=== PATIENT | male | born 1970 | race Caucasian/White ===

== ENCOUNTER 2019-01-16 07:30 | Inpatient (IN) ==
[2019-01-10 18:02] LABS: Appearance,Urine CLEAR; Bilirubin,Urine NEG (NEG); Color,Urine STRAW; Glucose,Urine (UA) NEGATIVE (NEG); Ketones,Urine NEG (NEG); Leukocyte Esterase,Urine NEG /uL (NEG); Nitrate,Urine NEG (NEG); Protein,Urine NEG (NEG); Specific Gravity,Urine 1.009 (1.000-1.035); Urine Blood NEG mg/dL (<0.03); Urobilinogen,Urine NEG (NEG)
[2019-01-10 20:48] LABS: Basophils # (Auto) 0 K/mcL (0.0-0.3); Basophils % (Auto) 0.5 % (0.0-2.0); Eosinophils # (Auto) 0.3 K/mcL (0.0-0.7); Eosinophils % (Auto) 3.4 % (0.0-7.0); Granulocytes % (Auto) 57.3 % (38.0-78.0); Hematocrit 39.5 % (41.0-55.0); Hemoglobin 12.8 g/dL (13.5-16.5); Lymphocytes # (Auto) 2.9 K/mcL (1.5-4.8); Lymphocytes % (Auto) 31.1 % (15.5-49.0); Mean Cell Volume 93.3 fL (80.0-100.0); Mean Corpuscular HGB Conc 32.4 g/dL (31.0-36.0); Monocytes # (Auto) 0.7 K/mcL (0.1-0.9); Monocytes % (Auto) 7.7 % (1.0-12.0); Platelet Count 243 K/mcL (140-440); RBC 4.23 M/mcL (4.50-5.90); Red Cell Distribution Width 14.8 % (11.5-14.5); WBC 9.4 K/mcL (4.5-11.0)
[2019-01-10 20:58] LABS: Estimated Average Glucose(eAG) 114 mg/dL; Hemoglobin A1C 5.6 % HGB (4.0-6.0)
[2019-01-10 21:21] LABS: Blood Urea Nitrogen 16 mg/dl (6-20); Calcium 9.1 mg/dl (8.6-10.4); Carbon Dioxide 28 mmol/L (22-30); Chloride 100 mmol/L (96-108); Glomerular Filtration Rate 88; Glucose 81 mg/dL (70-105)
[~2019-01-16 07:30] MED LIST: CELECOXIB 200 MG CAPSULE PO SCH; PREGABALIN 150 MG CAPSULE PO SCH; ceFAZolin 2 GM in DEXTROSE 5% IN WATER 50 ML IV SCH; oxyCODONE 10 MG TAB.ER.12H PO SCH
[2019-01-16] MEDS ORDERED: fentaNYL 25 MCG PATCH TD SCH (10:00)
[2019-01-16] MEDS ORDERED: SCOPOLAMINE 1 PATCH PATCH TOPICAL PRN (11:00)
[2019-01-16] MEDS ORDERED: IPRATROPIUM/ALBUTEROL 3 ML AMPUL.NEB NEB PRN ×2 (11:00→15:29)
[2019-01-16] MEDS ORDERED: LIDOCAINE HCL/PF 100 MG/5 ML SYRINGE IV ONE (14:05)
[2019-01-16] MEDS ORDERED: GLYCOPYRROLATE 0.2 MG/ML VIAL IV ONE (14:05)
[2019-01-16] MEDS ORDERED: TRANEXAMIC ACID 1,000 MG/10 ML VIAL IV ONE ×2 (14:05→15:37)
[2019-01-16] MEDS ORDERED: MIDAZOLAM 5 MG/5 ML VIAL IV ONE (14:05)
[2019-01-16] MEDS ORDERED: ONDANSETRON 4 MG/2 ML VIAL IV ONE (14:05)
[2019-01-16] MEDS ORDERED: ROPIVACAINE HCL/PF 30 ML VIAL IJ ONE (14:05)
[2019-01-16] MEDS ORDERED: KETAMINE 100 MG/ML ML IV ONE (14:05)
[2019-01-16] MEDS ORDERED: PROPOFOL 200 MG/20 ML VIAL IV ONE (14:05)
[2019-01-16] MEDS ORDERED: DEXAMETHASONE 10 MG/ML VIAL IV ONE (14:05)
[2019-01-16] MEDS: 0.9 % SODIUM CHLORIDE 9 ML, KETOROLAC 30 MG, ROPIVACAINE HCL/PF 49.5 ML, EPINEPHrine 0.... IJ SCH ×2 (14:41→15:13)
[2019-01-16] MEDS ORDERED: PROMETHAZINE 25 MG/ML VIAL IM PRN (15:29)
[2019-01-16] MEDS ORDERED: fentaNYL 100 MCG/2 ML VIAL IV PRN (15:29)
[2019-01-16] MEDS ORDERED: ACETAMINOPHEN 1,000 MG/100 ML BOTTLE IV ONE (15:29)
[2019-01-16] MEDS ORDERED: METHOCARBAMOL 1,000 MG/10 ML VIAL IV PRN (15:29)
[2019-01-16] MEDS ORDERED: ONDANSETRON 4 MG/2 ML VIAL IV PRN ×2 (15:29→15:37)
[2019-01-16] MEDS ORDERED: LACTATED RINGERS 1,000 ML IV SCH (15:30)
[2019-01-16] MEDS ORDERED: MAGNESIUM HYDROXIDE 30 ML ORAL.SUSP PO PRN (15:37)
[2019-01-16] MEDS ORDERED: BENZOCAINE/MENTHOL 1 LOZENGE PO PRN (15:37)
[2019-01-16] MEDS ORDERED: POLYETHYLENE GLYCOL 3350 17 GM PACKET PO PRN (15:37)
[2019-01-16] MEDS ORDERED: BISACODYL 10 MG SUPP.RECT PR PRN (15:37)
[2019-01-16] MEDS ORDERED: FLEETS ADULT ENEMA PR PRN (15:37)
--- NOTE | 2019-01-16 15:37 | Brief Operative Note ---
Date of procedure: 01/16/19 Pre-op diagnosis: Left knee severe OA Post-op diagnosis: same Procedure: Left total knee arthroplasty Grafts/Implants: Yes ([place] Triathlon CR 5 femur, 6 tiba, 11mm X3 CR insert, 36 patella) Anesthesia: spinal, GLMA Findings: bone on bone arthritis Complications: none Surgeon: Malik Padron Harmonica Maker: Tani Head Estimated blood loss (cc): 30 Specimens Removed/Pathology: none sent Condition: stable Disposition: PACU
[2019-01-16] MEDS: MEPERIDINE 25 MG/ML SYRINGE IV PRN ×2 (16:20→16:27)
--- NOTE | 2019-01-16 16:45 | XRay Report ---
HISTORY: Postop left knee arthroplasty FINDINGS: There is a well-positioned left total knee prosthesis. No fracture is present. There is a crescent-shaped dystrophic calcification adjacent to the medial femoral epicondyle, due to chronic inflammation. IMPRESSION: Normal left knee prosthesis Interpreted and Authenticated by: Rom Evans 01/16/19
[2019-01-16] MEDS: KETOROLAC 30 MG/ML VIAL IV SCH (17:59)
[2019-01-16] MEDS: PANTOPRAZOLE 40 MG TABLET PO SCH (17:59)
[2019-01-16] MEDS: 0.9 % SODIUM CHLORIDE 1,000 ML IV SCH (17:59)
[2019-01-16] MEDS: HYDROcodone/APAP 10/325MG TABLET PO PRN ×2 (19:33→21:38)
[2019-01-16] MEDS ORDERED: ESOMEPRAZOLE MAGNESIUM 40 MG PO SCH (21:00)
[2019-01-16] MEDS ORDERED: SENNOSIDES 1 TABLET PO SCH (21:00)
[2019-01-16] MEDS ORDERED: MONTELUKAST 10 MG TABLET PO SCH (21:00)
[2019-01-16] MEDS ORDERED: ASPIRIN 81 MG TAB.CHEW ONE (21:35)
[2019-01-16] MEDS: PREGABALIN 150 MG CAPSULE PO SCH (21:38)
[2019-01-16] MEDS: ASPIRIN 325 MG ENTERIC COATED TABLET PO SCH (21:38)
[2019-01-16] MEDS: DOCUSATE SODIUM 100 MG CAPSULE PO SCH (21:38)
[2019-01-16] MEDS: ceFAZolin 1 GM VIAL IV SCH (21:39)
[2019-01-16] MEDS: 0.9 % SODIUM CHLORIDE 10 ML SYRINGE IV SCH (21:40)
[2019-01-16] MEDS: HYDROmorphone 2 MG/ML VIAL IV PRN (23:23)
[2019-01-17] MEDS: HYDROcodone/APAP 10/325MG TABLET PO PRN ×3 (00:08→06:05)
[2019-01-17] MEDS: KETOROLAC 30 MG/ML VIAL IV SCH ×2 (00:09→06:03)
[2019-01-17] MEDS: 0.9 % SODIUM CHLORIDE 1,000 ML IV SCH ×3 (00:10→06:55)
[2019-01-17] MEDS: HYDROmorphone 2 MG/ML VIAL IV PRN (02:58)
[2019-01-17] MEDS: ceFAZolin 1 GM VIAL IV SCH (06:02)
[2019-01-17] MEDS: 0.9 % SODIUM CHLORIDE 10 ML SYRINGE IV SCH (06:03)
--- NOTE | 2019-01-17 07:33 | Discharge Summary ---
Providers - Providers Patient information: Note initiated : 01/17/19 at 7:27 am Service Date, if different from initiated Date: [] Patient: Narciso Story 48 y/o M admitted on 01/16/19 for Left Total Knee Arthroplasty. Chief Complaint: [] Discharge date: 01/17/19 Hospitalization Hospital Course: Pt was admitted for a L TKA. Pt underwent the procedure on the day of admission. Pt transferred to the floor for IV pain meds, and IV abx, and PT. Pt discharged on post-op day 1. Will take ASA for DVT prophylaxis. Will f/u in 2 weeks. Discharge diagnosis: L knee OA Exam - Exam Clean and dry: Yes Weight bearing status: as tolerated Ortho Discharge - TKA - Patient Instructions Diet: Regular Diet Activity: activity as tolerated Total Knee Protocol: For Total Knee: Start ROM ASHIA with stationary bike or rocking chair. Work on gaining full extension of knee. Posterior dislocation precautions provided. Hip abductor strengthening and gait training instructions provided. Apply Cryocuff as instructed. Dressing Care: May shower in 2 days - Follow Up Plan Follow Up Appointments: Tani Head PA-C [Physician Senior Office Support Assistant Sosa] - 01/29/19 8:50 am Disposition: Home, Self-Care Prognosis: Good Rehab Potential: Good Overall status at discharge: patient is progressing back to baseline - Orders For Discharge Prescriptions: Aspirin [Ecotrin] 81 mg PO BID #30 tab.ec Transmission Status: Pending to [facility] oxyCODONE HCL/ACETAMINOPHEN [Percocet 5-325 mg Tablet] 1 - 2 each PO Q4-6HP PRN #75 tab PRN Reason: Pain Prescription Printed Pending Studies Resuscitation Status Full Code Diet Regular Diet Start TueJan 17 1540 Hydrocodone Bitart/Acetaminophen ([place] 10/325mg) 0 tab PO Q4HP PRN PRN Reason: PAIN LEVEL 3-6 Last Admin: 01/17/19 06:05 Dose: 1 tab Documented by: Admin: 01/17/19 02:57 Dose: 1 tab Documented by: Admin: 01/17/19 00:08 Dose: 1 tab Documented by: Admin: 01/16/19 21:38 Dose: 1 tab Documented by: Admin: 01/16/19 19:33 Dose: 1 tab Documented by: YAQUELIN Aspirin (Ecotrin) 81 mg PO BID ON LICENSE OF [facility] Last Admin: 01/16/19 21:38 Dose: Not Given Documented by: YAQUELIN Docusate Sodium (Colace) 100 mg PO BID ON LICENSE OF [facility] Last Admin: 01/16/19 21:38 Dose: 100 mg Documented by: YAQUELIN Fentanyl (Duragesic) 25 mcg TD Q72H ON LICENSE OF [facility] Last Admin: 01/16/19 18:00 Dose: Not Given Documented by: MERVAT Hydromorphone HCl (Dilaudid) 0 mg IV Q2HP PRN PRN Reason: PAIN LEVEL > 6 Last Admin: 01/17/19 02:58 Dose: 1 mg Documented by: Admin: 01/16/19 23:23 Dose: 1 mg Documented by: YAQUELIN Sodium Chloride (Sodium Chloride 0.9%) 1,000 mls @ 125 mls/hr IV .Q8H ON LICENSE OF [facility] Last Admin: 01/17/19 06:55 Dose: Not Given Documented by: Infusion: 01/17/19 06:14 Dose: 0 mls/hr Documented by: Admin: 01/17/19 01:43 Dose: 125 mls/hr Documented by: Infusion: 01/17/19 01:43 Dose: 125 mls/hr Documented by: Admin: 01/17/19 00:10 Dose: Not Given Documented by: Admin: 01/16/19 17:59 Dose: 125 mls/hr Documented by: MERVAT Ketorolac Tromethamine (Toradol) 30 mg IV Q6 ON LICENSE OF [facility] Stop: 01/18/19 12:01 Last Admin: 01/17/19 06:03 Dose: 30 mg Documented by: Admin: 01/17/19 00:09 Dose: 30 mg Documented by: Admin: 01/16/19 17:59 Dose: 30 mg Documented by: MERVAT Montelukast Sodium (Singular) 10 mg PO QHS ON LICENSE OF [facility] Last Admin: 01/16/19 21:38 Dose: 10 mg Documented by: YAQUELIN Pantoprazole Sodium (Protonix) 40 mg PO BIDAC ON LICENSE OF [facility] Last Admin: 01/16/19 17:59 Dose: 40 mg Documented by: MERVAT Pregabalin (Lyrica) 150 mg PO BID ON LICENSE OF [facility] Last Admin: 01/16/19 21:38 Dose: 150 mg Documented by: YAQUELIN Senna (Senokot) 2 tab PO HS ON LICENSE OF [facility] Last Admin: 01/16/19 21:38 Dose: 2 tab Documented by: YAQUELIN Sodium Chloride (Saline Flush) 10 ml IV Q8 ON LICENSE OF [facility] Last Admin: 01/17/19 06:03 Dose: 10 ml Documented by: Admin: 01/16/19 21:40 Dose: Not Given Documented by: YAQUELIN Shift Summary 01/17/19 03:56 Shift Summary by Sarahi Contreras Patient alert and oriented x4. Medicated with Dilaudid 1mg x2 and Hydrocodone 1 tab every 2-3 hours. Patient states Hydrocodone does not help much with his pain. Also on scheduled Toradol. Patient advised to talk to MD in AM during rounds to ask for much stronger pain pill. Patient was straight cath at 2230H for 1000 mls. Voided at 0300H 500 mls, PVR 114 mls. Cryo-cuff applied. NINI pumps on bilateral feet. Dressing on left knee CDI. IV to saline lock at shift change. VSS. Initialized on 01/17/19 03:56 - END OF NOTE
[2019-01-17] MEDS ORDERED: oxyCODONE/APAP 5/325MG TABLET PO PRN (07:42)
--- NOTE | 2019-01-17 08:11 | Operative Note ---
DATE OF OPERATION: 01/16/2019 PREOPERATIVE DIAGNOSIS: Left knee severe osteoarthritis. POSTOPERATIVE DIAGNOSIS: Left knee severe osteoarthritis. PROCEDURE PERFORMED: Left total knee arthroplasty placing a [place] triathlon size 5 cruciate retaining femoral component, size 6 tibial baseplate, an 11 mm X3 tibial insert and a 36 mm patellar button. SURGEON: Malik Padron MD CREDIT RISK SPECIALIST: Philip Head PA-C. This provider's expertise and technical skill were required throughout the case. The PA assisted with preoperative coordination, intraoperative retraction, wound closure, dressing and splint application, as well as postoperative documentation and care coordination. ANESTHESIA: Spinal plus general. DRAINS: None. SPECIMENS: Bone cuts, which were discarded. BLOOD LOSS: 50 mL COMPLICATIONS: None. POSTOPERATIVE CONDITION: Stable. INDICATIONS FOR SURGERY: A 48-year-old male who has had longstanding left knee pain. He had a history of the knee arthroscopy done several years ago and has had gradually worsening pain. Radiographs showed qdpl-na-iixx osteoarthritis, which is no longer responding to conservative treatment. FINDINGS AT SURGERY: There was wtby-ud-ckub osteoarthritis. Post-implantation showed good limb alignment, stability, and patellar tracking. PROCEDURE IN DETAIL: The patient had been seen preoperatively and informed consent had been obtained after discussion of risks and benefits of surgery. Risks including, but not limited to, bleeding, possibly requiring transfusion; infection, possibly requiring implant removal and prolonged IV antibiotics; injury to nerves, blood vessels or other surrounding structures, anesthetic risks, DVT and pulmonary embolus risks; stiffness; swelling; pain; instability; clunking. He understood these risks and wished to proceed. Correct operative site was marked and patient received spinal anesthesia in preoperative holding. He was then taken to the operating room and LMA general given. He was carefully positioned on the OR table and the left lower extremity was carefully prepped and draped in normal sterile fashion and a timeout was performed verifying patient name, operative site, and plan. Esmarch was used to exsanguinate the extremity and tourniquet was inflated to 300 mmHg. Ioban was used to cover all skin surfaces. A midline incision was made with a scalpel through skin and subcutaneous tissue. IrriSept was irrigated and then a medial parapatellar arthrotomy made. Subperiosteal exposure was done of the anterior medial tibia with Bovie and then ACL was transected. Anterior horns of the meniscus were removed. The retropatellar fat pad was excised and then the patella was measured thickness of 25. I then did a freehand resection with a saw. Post-resection thickness was 13. We placed a cut protector. The knee was flexed up and then a drill hole was made in the notch of the femur. We then passed a flexible IM line it up and a 5 degree valgus cut angle with an 8 mm depth of resection was pinned into place holding the flexible keara with a mild posterior pressure. We then cut our distal femoral cut. Flat block was checked to verify a flush cut and then we placed the sizer. This was pinned into place and it appeared to size to a size 5. I went ahead and externally rotated 4 degrees to match [place] line and then holes were drilled. We then held up a size 5 femur. It looked small medial to lateral, so I went to a size 6. The size 6 looked better medial to lateral, so I went ahead and pinned a size 6, 4-in-[address]. We made our anterior cut and this appeared to have an adequate depth of resection, so I went ahead and removed this block and went to a size 5. We recut our anterior cut and this time it was flush with the anterior cortex. We went ahead and made our posterior and chamfer cuts. We then removed the 4-in-1 block and subluxed the tibia forward. The posterior horns of the menisci were removed. A drill hole was made in the ACL footprint and the IM keara was passed down the tibial canal. I stylused two off of the medial side and pinned this into place. My initial cut; however, was too shallow not getting through cartilage fully on the medial side, so we went ahead and moved this cutting block down 1 set of holes and recut. This time I did contact bone throughout the tibia. We then sized the tibia; a size 5 was undersized and a size 6 fit nicely, so we externally rotated as bone coverage would allow. This was pinned into place. We then used a boss reamer and keel punch to prepare the tibia and then a keeled tibial trial was placed. Femur was elevated and curved osteotome used to remove any posterior osteophyte and curet and rongeur was used to remove the bone fragments. We then impacted the size [address] I centered this over the notch. This was pinned into place and then the peg holes were drilled and a 9 insert trial was snapped into place. The knee was taken into extension and then we prepared the patella using a 36 and medialized maximally. Holes were drilled and then the patellar trial placed and then a lateral facetectomy performed. Post-reconstruction thickness measured 24 mm. We then checked our patellar tracking and it was good without tilt or subluxation, so we went ahead and removed trial implants. Definitive implants were opened. We irrigated the joint with IrriSept and after a minute we pulse lavaged copiously with saline. I made some drill holes in the sclerotic bone on the medial and lateral tibia. Antibiotic cement was mixed; CO2 gun was used to clean and dry the cancellous bone surface and then we cemented the tibia. Excess cement was removed. We then cemented the femur and excess cement removed. The 9 insert trial was placed and the knee was taken into full extension and placed on a bump. We then cemented the patellar button. We removed any excess cement that extruded out and then filled the joint with IrriSept. I injected pain cocktail in the subcutaneous and pericapsular tissues. Once cement had fully hardened, we flexed the knee up and removed any remaining cement visible. A 9 insert trial head snapped in easily, so I elected to tighten things up with an 11. We opened an 11 CR insert and injected pain cocktail in the posteromedial capsule. IrriSept was irrigated onto the tray and then the 11 insert was carefully impacted and verified to be fully seated. We checked our range of motion. We still got essentially full extension and excellent stability throughout range of motion and good patellar tracking. We then filled the joint of IrriSept again and after waiting a minute pulse lavaged with saline. The knee was then placed in about 45 degrees of flexion. Interrupted #2 FiberWire ylfier-sg-tdyrgh were used around the superior quadrant of the patella, #1 Vicryl keqjjo-op-zwexlt were used around the inferior quadrant, running #1 Vicryl was used for patellar tendon and quad tendon closure. IrriSept was irrigated a final time, lavage with saline and then 2-0 Monocryl was used for subcutaneous and carlita for skin. Xeroform sterile dressings were applied. Tourniquet was released. The patient was awakened, extubated, and transferred to recovery in stable condition. BJB:laurel Job ID: [id number] Doc ID: [id number] Malik Padron MD
[2019-01-17] MEDS ORDERED: HYDROCHLOROTHIAZIDE 12.5 MG CAPSULE PO SCH (09:00)
[2019-01-17] MEDS ORDERED: ASCORBIC ACID 500 MG TABLET PO SCH (09:00)
[2019-01-17] MEDS ORDERED: ASPIRIN 81 MG TAB.CHEW PO SCH (09:00)
[2019-01-17] MEDS: PANTOPRAZOLE 40 MG TABLET PO SCH (10:23)
[2019-01-17] MEDS: DOCUSATE SODIUM 100 MG CAPSULE PO SCH (10:23)
[2019-01-17] MEDS: PREGABALIN 150 MG CAPSULE PO SCH (10:23)
[2019-01-17] MEDS: ASPIRIN 325 MG ENTERIC COATED TABLET PO SCH (10:51)
== END 2019-01-17 11:35 | disposition home or self-care (01) | DRG 470 ==
LOC: MEDSUR 11:15
PROVIDERS: ADMIT Orthopaedic Surgery; ATTEND Orthopaedic Surgery

== ENCOUNTER 2019-04-13 06:49 | Inpatient (IN) ==
[2019-04-06 12:34] LABS: Appearance,Urine CLEAR; Bilirubin,Urine NEG (NEG); Color,Urine STRAW; Culture Indicated,Urine NO; Glucose,Urine (UA) NEGATIVE (NEG); Ketones,Urine NEG (NEG); Leukocyte Esterase,Urine NEG /uL (NEG); Nitrate,Urine NEG (NEG); Protein,Urine NEG (NEG); Specific Gravity,Urine 1.012 (1.000-1.035); Urine Blood NEG mg/dL (<0.03); Urobilinogen,Urine NEG (NEG)
[2019-04-06 12:47] LABS: Basophils # (Auto) 0.09 K/mcL (0.00-0.30); Basophils % (Auto) 0.9 % (0.0-2.0); Eosinophils % (Auto) 2.9 % (0.0-7.0); Granulocytes % (Auto) 57.1 % (38.0-78.0); Hemoglobin 13.9 g/dL (13.7-17.5); Lymphocytes # (Auto) 3.23 K/mcL (1.50-4.80); Mean Cell Volume 91.3 fL (80.0-100.0); Mean Corpuscular HGB Conc 32.3 g/dL (31.0-36.0); Mean Platelet Volume 11.6 fL (7.4-10.4); Monocytes # (Auto) 0.84 K/mcL (0.10-0.90); Monocytes % (Auto) 8.1 % (1.0-12.0); Platelet Count 238 K/mcL (140-440); RBC 4.71 M/mcL (4.63-6.08); Red Cell Distribution Width 13.8 % (11.5-14.5); WBC 10.4 K/mcL (4.50-11.00)
[2019-04-06 13:34] LABS: Estimated Average Glucose(eAG) 108 mg/dL; Hemoglobin A1C 5.4 % HGB (4.0-6.0)
[2019-04-06 13:38] LABS: ALT/SGPT 16 U/l (0-40); AST/SGOT 18 U/l (0-37); Albumin 4.4 gm/dL (3.2-5.2); Albumin/Globulin Ratio 1.9 (1.0-2.3); Alkaline Phosphatase 72 U/L (39-117); Bilirubin,Total 0.4 mg/dL (0.0-1.0); Blood Urea Nitrogen 18 mg/dl (6-20); Calcium 9.8 mg/dl (8.6-10.4); Carbon Dioxide 26 mmol/L (22-30); Chloride 100 mmol/L (96-108); Globulin 2.3 gm/dL (2.2-3.7); Glomerular Filtration Rate 87; Glucose 87 mg/dL (70-105)
[~2019-04-13 06:49] MED LIST changes: +0.9 % SODIUM CHLORIDE 9 ML, KETOROLAC 30 MG, ROPIVACAINE HCL/PF 49.5 ML, EPINEPHrine 0.... IJ SCH
[2019-04-13] MEDS ORDERED: ROPIVACAINE HCL/PF 20 ML VIAL IJ ONE (09:35)
[2019-04-13] MEDS ORDERED: GLYCOPYRROLATE 0.2 MG/ML VIAL IV ONE (09:35)
[2019-04-13] MEDS ORDERED: LIDOCAINE HCL/PF 100 MG/5 ML SYRINGE IV ONE (09:35)
[2019-04-13] MEDS ORDERED: PROPOFOL 200 MG/20 ML VIAL IV ONE (09:35)
[2019-04-13] MEDS ORDERED: TRANEXAMIC ACID 1,000 MG/10 ML VIAL IV ONE (09:35)
[2019-04-13] MEDS ORDERED: ONDANSETRON 4 MG/2 ML VIAL IV ONE (09:35)
[2019-04-13] MEDS ORDERED: KETAMINE 100 MG/ML ML IV ONE (09:35)
[2019-04-13] MEDS ORDERED: DEXAMETHASONE 10 MG/ML VIAL IV ONE (09:35)
[2019-04-13] MEDS ORDERED: PROMETHAZINE 25 MG/ML VIAL IV PRN (10:58)
[2019-04-13] MEDS ORDERED: IPRATROPIUM/ALBUTEROL 3 ML AMPUL.NEB NEB PRN (10:58)
[2019-04-13] MEDS ORDERED: KETOROLAC 15 MG/ML VIAL IV PRN (10:58)
[2019-04-13] MEDS ORDERED: ONDANSETRON 4 MG/2 ML VIAL IV PRN ×2 (10:58→11:06)
[2019-04-13] MEDS ORDERED: BENZOCAINE/MENTHOL 1 LOZENGE PO PRN ×2 (10:58→11:06)
[2019-04-13] MEDS ORDERED: FLUMAZENIL 0.1 MG/ML ML IV PRN (10:58)
[2019-04-13] MEDS ORDERED: NALOXONE HCL 0.4 MG/ML VIAL IV PRN (10:58)
[2019-04-13] MEDS ORDERED: LACTATED RINGERS 250 ML IV PRN (10:58)
[2019-04-13] MEDS ORDERED: MEPERIDINE 25 MG/ML SYRINGE IV PRN (10:58)
[2019-04-13] MEDS ORDERED: ACETAMINOPHEN 1,000 MG/100 ML BOTTLE IV ONE (10:58)
[2019-04-13] MEDS ORDERED: diphenhydrAMINE 50 MG/ML VIAL IV PRN (10:58)
[2019-04-13] MEDS ORDERED: LACTATED RINGERS 1,000 ML IV SCH (11:00)
[2019-04-13] MEDS ORDERED: FLEETS ADULT ENEMA PR PRN (11:06)
[2019-04-13] MEDS ORDERED: HYDROcodone/APAP 10/325MG TABLET PO PRN (11:06)
[2019-04-13] MEDS ORDERED: MAGNESIUM HYDROXIDE 30 ML ORAL.SUSP PO PRN (11:06)
[2019-04-13] MEDS ORDERED: TRANEXAMIC ACID 1,000 MG/10 ML VIAL IV SCH (11:06)
[2019-04-13] MEDS ORDERED: BISACODYL 10 MG SUPP.RECT PR PRN (11:06)
[2019-04-13] MEDS ORDERED: POLYETHYLENE GLYCOL 3350 17 GM PACKET PO PRN (11:06)
--- NOTE | 2019-04-13 11:06 | Brief Operative Note ---
Date of procedure: 04/13/19 Pre-op diagnosis: Right knee severe DJD Post-op diagnosis: same Procedure: Right total knee arthroplasty Grafts/Implants: Yes ([place] Triathlon CR 5 femur, 6 tibia, 10mm CR insert, 39 patella) Anesthesia: spinal, GLMA Findings: severe bone on bone arthritis Complications: none Surgeon: Malik Padron Wing Coverer: Joesph Anand Estimated blood loss (cc): 30 Specimens Removed/Pathology: none sent Condition: stable Disposition: PACU
[2019-04-13] MEDS: KETOROLAC 30 MG/ML VIAL IV SCH ×3 (11:37→23:58)
[2019-04-13] MEDS: fentaNYL 100 MCG/2 ML VIAL IV PRN ×4 (11:45→11:58)
--- NOTE | 2019-04-13 12:36 | Operative Note ---
DATE OF OPERATION: 04/13/2019 PREOPERATIVE DIAGNOSIS: Right knee severe qpdn-gk-ylvh osteoarthritis. POSTOPERATIVE DIAGNOSIS: Right knee severe mqdp-ex-cjps osteoarthritis. PROCEDURE PERFORMED: Right total knee arthroplasty placing a [place] Triathlon size 5 cruciate retaining femoral component, size 6 tibial baseplate, a 10 mm X3 tibial insert with a 39 mm patellar button. SURGEON: Malik Padron M.D. DEATH CLAIM CLERK: Joesph Anand PA-C. The PA's assistance was required for the safe and efficient completion of the entire case. This provider's expertise and technical skill were required throughout the case. The PA assisted with preoperative coordination, intraoperative retraction, wound closure, dressing and splint application, as well as postoperative documentation and care coordination. ANESTHESIA: Spinal plus general. DRAINS: None. SPECIMENS: Bone cuts which were discarded. BLOOD LOSS: Less than 30 mL. COMPLICATIONS: None. POSTOPERATIVE CONDITION: Stable. INDICATIONS FOR SURGERY: This is a 49-year-old male who has had longstanding, progressive worsening knee pain. This has been unresponsive to conservative treatment including previous arthroscopy and continued intermittent steroid injections. X-rays showed eymb-vz-couu arthritis. He had a recent left total knee arthroplasty which he was very pleased with. FINDINGS AT SURGERY: There was full-thickness cartilage loss with dzpc-gy-kxgo articulation. Post implantation showed good overall limb alignment, joint stability, and patellar tracking. PROCEDURE IN DETAIL: The patient had been seen preoperatively. Informed consent had been obtained after discussion of risks and benefits of surgery. Risks including, but not limited to, bleeding, possibly requiring transfusion; infection, possibly requiring implant removal and prolonged IV antibiotics; injury to nerves, blood vessels, and other surrounding structures; anesthetic risks; incomplete or no pain relief; stiffness; swelling; pain; instability; DVT and pulmonary embolus risks; and the possibility of needing further revision surgery, this being highly likely given his young age. He understood these risks and wished to proceed. Correct operative site was marked and then patient received spinal anesthesia. He was then taken to the operating room and LMA general given. The right lower extremity was carefully prepped and draped in normal sterile fashion. A timeout was performed verifying patient name, operative site, and plan. Esmarch was used to exsanguinate the extremity and tourniquet was inflated to 300 mmHg. All skin surfaces were covered with Ioban and then a midline incision was made with a scalpel through skin and subcutaneous tissue. Hemostasis was obtained with Bovie cautery. Irrisept was irrigated and then a medial parapatellar arthrotomy made. Subperiosteal exposure was done of the anterior medial tibia. Anterior horns of the menisci were removed, as well as retropatellar fat pad. The patella was measured at 24 mm thick. We did a resection with patellar saw. Post-resection was 12 mm thick. We sized this to a 39, but did not drill holes yet. We placed a cut protector. The knee was flexed up and ACL was transected. The distal anterior cortex of the femur was also exposed subperiosteally with the Bovie. A drill was then used to make entry into the distal femur and then a flexible IM keara was passed up. A 5 degree valgus cut block with 8 mm resection depth was pinned into place. We made our distal cut with the saw and then removed the cut block. The epicondyles were marked as well as Cash's line. A sizer block was pinned into place and then we sized this to a size 5, which was the same as his other side. Three degrees of external rotation matched his anatomy best, so we went ahead and made drill holes. We then placed our 4-in-1 block. The anterior cut was made and then posterior and chamfers. The tibia was subluxed forward and posterior horns of the menisci were removed. Drill hole was made in the ACL footprint and IM keara was passed down the tibia. We stylused 2 off of the medial side with a 3 degree slope. We went ahead and made our cut. This seemed to be skiving posteriorly, so we did go ahead and move the cut block down 2 mm and recut. This did better and so we sized this to a 6. This was externally rotated as bone coverage would allow and then pinned into place. Boss reamer and keel punch were used to prepare the tibia and then a keeled tibial trial was placed. Femur was elevated and curved osteotome used to remove any posterior osteophytes. Then, a femur trial was placed. This was pinned and then drill holes made for the pegs. We then placed a 9 insert trial and the knee was taken into extension. We then drilled our patella, medializing it maximally and then the patellar trial was placed. A limited lateral facetectomy was performed and then we checked our thickness which was just under 24 mm. We checked our patellar tracking, which was good, so we went ahead and opened implants. The definitive components were opened. We irrigated with IrriSept, after a minute we pulse lavaged with saline, and then CO2 gun was used to clean and dry the cancellous bone surface. We went ahead and mixed antibiotic cement. The tibia was cemented and excess cement removed. The femur was cemented and then excess cement removed. The 9 insert trial was placed. The knee was taken into extension. The patellar button was cemented and compressed. We then filled the joint with IrriSept. Pain cocktail was injected in the pericapsular and subcutaneous tissues. After cement had fully hardened, we flexed the knee up and did a final inspection and removal of any excess cement. We then opened a 10 mm X3 tibial insert. We injected pain cocktail in the posterior capsule and then irrigated IrriSept onto the tray and then the definitive insert was impacted and carefully verified to be fully seated. We then placed the knee in extension, filled the joint with IrriSept, after a minute pulse lavaged with saline, and then the knee was flexed up to approximately 45 degrees. Interrupted #2 FiberWire odlgaw-ye-pzjjow were used around the superior quadrant of the patella, interrupted #1 Vicryl qwanho-mr-xxtqfu around the inferior quadrant, running #1 Vicryl was used for patellar tendon and quad tendon. Final IrriSept irrigation was done, after a minute final pulse lavage, then 2-0 Monocryl used for subcutaneous and carlita for skin. Xeroform and sterile dressing were applied. Tourniquet was released. The patient was awakened, extubated, and transferred to recovery in stable condition. VALDEMAR:[email or web address] Job ID: [id number] Doc ID: [id number] Malik Padron MD
--- NOTE | 2019-04-13 13:08 | XRay Report ---
CLINICAL INFORMATION: Post-op total knee. COMPARISON: None. FINDINGS: Total knee prosthesis is anatomically aligned. No osseous abnormality. Periarticular gas and soft tissue swelling seen as expected IMPRESSION: Negative Interpreted and Authenticated by: Narciso Carranza 04/13/19
[2019-04-13] MEDS: 0.9 % SODIUM CHLORIDE 10 ML SYRINGE IV SCH ×3 (14:08→23:59)
[2019-04-13] MEDS: 0.9 % SODIUM CHLORIDE 1,000 ML IV SCH ×2 (14:11→23:07)
[2019-04-13] MEDS: HYDROmorphone 2 MG/ML VIAL IV PRN ×2 (14:22→22:13)
[2019-04-13] MEDS: oxyCODONE/APAP 10/325MG TABLET PO PRN ×3 (17:13→21:35)
[2019-04-13] MEDS: ceFAZolin 1 GM VIAL IV SCH ×2 (17:27→23:59)
[2019-04-13] MEDS: PREGABALIN 150 MG CAPSULE PO SCH (20:56)
[2019-04-13] MEDS: DOCUSATE SODIUM 100 MG CAPSULE PO SCH (20:56)
[2019-04-13] MEDS: ASPIRIN 81 MG TAB.CHEW PO SCH (20:56)
[2019-04-13] MEDS: OMEPRAZOLE 20 MG CAPSULE PO SCH (20:56)
[2019-04-13] MEDS ORDERED: MONTELUKAST 10 MG TABLET PO SCH (21:00)
[2019-04-13] MEDS ORDERED: SENNOSIDES 1 TABLET PO SCH (21:00)
[2019-04-14] MEDS: oxyCODONE/APAP 10/325MG TABLET PO PRN ×4 (00:58→12:56)
[2019-04-14] MEDS: 0.9 % SODIUM CHLORIDE 1,000 ML IV SCH ×2 (04:02→11:46)
[2019-04-14] MEDS: 0.9 % SODIUM CHLORIDE 10 ML SYRINGE IV SCH (05:20)
[2019-04-14] MEDS: KETOROLAC 30 MG/ML VIAL IV SCH ×2 (05:20→11:45)
[2019-04-14] MEDS: ASPIRIN 81 MG TAB.CHEW PO SCH (08:55)
[2019-04-14] MEDS: OMEPRAZOLE 20 MG CAPSULE PO SCH (08:56)
[2019-04-14] MEDS: DOCUSATE SODIUM 100 MG CAPSULE PO SCH (08:56)
[2019-04-14] MEDS: PREGABALIN 150 MG CAPSULE PO SCH (08:56)
[2019-04-14] MEDS ORDERED: HYDROCHLOROTHIAZIDE 12.5 MG CAPSULE PO SCH (09:00)
[2019-04-14] MEDS ORDERED: ASCORBIC ACID 500 MG TABLET PO SCH (09:00)
--- NOTE | 2019-04-14 11:15 | Discharge Summary ---
Ortho Discharge - TKA - Patient Instructions Diet: Regular Diet Activity: weight bearing as tolerated Total Knee Protocol: For Total Knee: Start ROM ASHIA with stationary bike or rocking chair. Work on gaining full extension of knee. Posterior dislocation precautions provided. Hip abductor strengthening and gait training instructions provided. Apply Cryocuff as instructed. Dressing Care: Other (may shower with waterproof dressing on) - Follow Up Plan Follow Up Appointments: Tani Head PA-C [Physician [employer]] - 04/30/19 9:20 am Disposition: Home, Self-Care Prognosis: Good Rehab Potential: Good - Orders For Discharge Additional Discharge Orders: Physical Therapy at Discharge - TKA Location: None Selected
[2019-04-16] MEDS ORDERED: fentaNYL 25 MCG PATCH TOPICAL SCH (10:00)
== END 2019-04-14 13:35 | disposition home or self-care (01) | DRG 470 ==
LOC: MEDSUR 06:49
PROVIDERS: ADMIT Orthopaedic Surgery; ATTEND Orthopaedic Surgery